=== PATIENT | male | born 1940 | race Hispanic/Latino ===

== ENCOUNTER 2023-03-12 05:52 | Day surgery (SDC) | payer MEDICARE ==
[2023-03-09 10:01] VITALS: BP 171/66; PULSE 58; RESP 18
[2023-03-09 10:01] LABS: BASOPHILS # (AUTO) 0.06 K/uL (0.00-0.20); EOSINOPHILS % (AUTO) 3.3 % (0.0-8.0); HEMATOCRIT 35.5 % (42-54); IMMATURE GRANULOCYTE ABSOLUTE 0.03 K/uL (0-1); LYMPHOCYTES % (AUTO) 15.9 % (21.0-51.0); MEAN CORPUSCULAR HEMOGLOBIN 30.3 pg (27.0-33.0); MONOCYTES # (AUTO) 0.4 K/uL (0.1-1.0); MONOCYTES % (AUTO) 6.9 % (3.0-13.0); NEUTROPHILS # (AUTO) 4.3 K/uL (1.8-7.7); NEUTROPHILS % (AUTO) 72.4 % (40.0-77.0); PLATELET COUNT (AUTO) 173 K/uL (130-400); RED BLOOD CELL COUNT(AUTO) 3.86 MIL/uL (4.50-6.20); RED CELL DISTRIBUTION WIDTH 13.1 % (11.0-15.5)
[2023-03-09 10:10] LABS: POTASSIUM 4.4 mmol/L (3.5-5.1)
[2023-03-09 10:17] LABS: INR 0.98 (0.85-1.15); PROTHROMBIN TIME 11.4 SEC (9.6-11.6)
[2023-03-09 10:19] LABS: PARTIAL THROMBOPLASTIN TIME 28.8 SEC (26.3-35.5)
[2023-03-09 10:54] LABS: B-TYPE NATRIURETIC PEPTIDE 41 pg/mL (0-100)
[2023-03-12] VITALS (11 sets, daily range): BP systolic 125–168; BP diastolic 61–90; PULSE 57–66; RESP 11–18
[~2023-03-12] VITALS: Ht 180.3 cm; Wt 81.6 kg
[~2023-03-12 05:52] MED LIST: AEC81 PO; CALC-1153 PO; CHOL500051 PO; CLOP75TA32 PO; COQ10 PO; DEXL60CA6 PO; DUTA1CPM4 PO; FOLI0.8T3 PO; METO-408 PO; MONT-39 PO; ROSU5TAB12 PO; VITAMIN B12 PO
[2023-03-12] MEDS ORDERED: 0.9%NACL 1000ML 1,000 ML IV ONE (07:27)
[2023-03-12] MEDS ORDERED: LISI1TAB51 PO (08:03)
[2023-03-12] MEDS ORDERED: LIDOCAINE HCL 400MG/20ML VIAL ONE (09:04)
[2023-03-12] MEDS ORDERED: NITROGLYCERIN 50MG VIAL ONE (09:05)
[2023-03-12] MEDS ORDERED: FENTANYL CITRATE PF 50 MCG/1 ML 2ML VIAL ONE (09:05)
[2023-03-12] MEDS ORDERED: IOHEXOL 350 MG/ML 100ML INFUS..BTL IV ONE (09:05)
[2023-03-12] MEDS ORDERED: MIDAZOLAM HCL 1 MG/ML 2ML VIAL ONE (09:05)
[2023-03-12] MEDS ORDERED: HEPARIN 10,000 UNIT/10ML (1,000 UNIT/ML) VIAL ONE (09:05)
[2023-03-12] MEDS ORDERED: DEXTROSE 50%-WATER 50 ML DISP.SYRIN IV PRN (11:00)
[2023-03-12] MEDS ORDERED: 0.9%NACL 1000ML 1,000 ML IV SCH (11:00)
[2023-03-12] MEDS ORDERED: GLUCAGON 1MG KIT 1 MG ML IM PRN (11:00)
== END 2023-03-12 16:00 | disposition home or self-care (01) ==
LOC: DAH 05:52
PROVIDERS: ATTEND Internal Medicine Cardiovascular Disease
DX: I25.119 Atherosclerotic heart disease of native coronary artery with unspecified angina pectoris (principal); I63.9 Cerebral infarction, unspecified; E78.5 Hyperlipidemia, unspecified; K21.9 Gastro-esophageal reflux disease without esophagitis; I11.9 Hypertensive heart disease without heart failure; R94.31 Abnormal electrocardiogram [ECG] [EKG]; I47.29 Other ventricular tachycardia; Z82.49 Family history of ischemic heart disease and other diseases of the circulatory system; Z80.3 Family history of malignant neoplasm of breast; Z80.0 Family history of malignant neoplasm of digestive organs; Z72.89 Other problems related to lifestyle; Z79.82 Long term (current) use of aspirin; Z87.891 Personal history of nicotine dependence; Z79.899 Other long term (current) drug therapy
CPT/HCPCS: 80048; 83880; 85025; 85610; 85730; 36415; 71045; 93005; 93458; C1894 ×2; C1760; Q9965; J3010; J3490 ×2; J7030; J2250; J1644; Q9967; A4215; A4222; A4221; A4663; A4216; A4606; A4223 ×3; 96360; 96361; 99156; 99157